=== PATIENT | female | born 1965 | race Caucasian/White ===

== ENCOUNTER → 2023-05-19 15:33 | Outpatient (REF) | payer BC, SELFPAY | LOC: WDC 15:33 | PROVIDERS: ATTENDING PHYSICIAN Nurse Practitioner Family | DX: Z12.31 Encounter for screening mammogram for malignant neoplasm of breast (principal) | CPT/HCPCS: 77063; 77067 ==

== ENCOUNTER → 2024-01-19 09:15 | Outpatient (REF) | payer BC, SELFPAY | LOC: RAD 09:15 | PROVIDERS: ATTENDING PHYSICIAN Otolaryngology; FAMILY PHYSICIAN Nurse Practitioner Family | DX: R13.14 Dysphagia, pharyngoesophageal phase (principal) | CPT/HCPCS: 74221 ==

== ENCOUNTER 2024-05-15 06:22 | Day surgery (SDC) | payer BC, SELFPAY | END 2024-05-15 09:01 | disposition home or self-care (01) | LOC: GI 06:22 | PROVIDERS: ATTENDING PHYSICIAN Internal Medicine | DX: Z12.11 Encounter for screening for malignant neoplasm of colon (principal); D12.3 Benign neoplasm of transverse colon; K63.5 Polyp of colon; K58.9 Irritable bowel syndrome, unspecified; K64.8 Other hemorrhoids | CPT/HCPCS: 45385; 88305 ==

== ENCOUNTER → 2024-06-19 13:56 | Outpatient (REF) | payer BC, SELFPAY | LOC: RAD 13:56 | PROVIDERS: ATTENDING PHYSICIAN Dermatology; FAMILY PHYSICIAN Nurse Practitioner Family | DX: D03.4 Melanoma in situ of scalp and neck (principal) | CPT/HCPCS: 71046 ==

== ENCOUNTER → 2024-07-04 14:49 | Outpatient (REF) | payer BC, SELFPAY | LOC: WDC 14:49 | PROVIDERS: ATTENDING PHYSICIAN Nurse Practitioner Family | DX: Z12.31 Encounter for screening mammogram for malignant neoplasm of breast (principal) | CPT/HCPCS: 77063; 77067 ==

== ENCOUNTER → 2024-11-13 14:36 | Outpatient (REF) | payer BC, SELFPAY | LOC: RAD 14:36 | PROVIDERS: ATTENDING PHYSICIAN Internal Medicine Hematology & Oncology; FAMILY PHYSICIAN Nurse Practitioner Family | DX: D70.9 Neutropenia, unspecified (principal) | CPT/HCPCS: 76700 ==

== ENCOUNTER → 2024-12-12 13:07 | Outpatient (REF) | payer BC, SELFPAY | LOC: RAD 13:07 | PROVIDERS: ATTENDING PHYSICIAN Nurse Practitioner Family | DX: M79.604 Pain in right leg (principal) | CPT/HCPCS: 93971 ==

== ENCOUNTER 2024-12-26 06:24 | Day surgery (SDC) | payer BC, SELFPAY | END 2024-12-26 11:42 | disposition home or self-care (01) | LOC: GI 06:24 | PROVIDERS: ATTENDING PHYSICIAN Internal Medicine | DX: R13.10 Dysphagia, unspecified (principal); D50.9 Iron deficiency anemia, unspecified; K22.89 Other specified disease of esophagus; K44.9 Diaphragmatic hernia without obstruction or gangrene; K22.70 Barrett's esophagus without dysplasia | CPT/HCPCS: 43239; 88305; 88342 ==